=== PATIENT | female | born 1975 | race Caucasian/White ===

== ENCOUNTER → 2019-03-24 13:19 | Day surgery (SDC) | payer OTHER ==
[~2019-03-24 13:19] MED LIST: Acetaminophen TAB* 325 MG PO PRN; Buffered Lidocaine 1% SYRIN* 1 ML/SYRINGE INTRADERM ONE; Bupivacaine 0.5% W/EPI SDV* 10 ML VIAL INJ ONE; Dexamethasone IV* 4 MG/ML 1 ML (4 MG) IV SLOW PU ONE; Dexamethasone IV* 4 MG/ML 1 ML (4 MG) ONE; DiMENhydriNATE IV* 50 MG/ML VIAL IV PUSH PRN; DiMENhydriNATE IV* 50 MG/ML VIAL ONE; Famotidine IV* 10 MG/ML 2 ML (20 mg) IV ONE; Famotidine IV* 10 MG/ML 2 ML (20 mg) ONE; HYDROmorphone INJ1* 1 MG/ML SYRINGE IV PRN; Ketorolac INJ* 30 MG/ML 1 ML VIAL ONE; Lactated Ringers 1000 ML Bag* 1,000 ML IV SCH; Levalbuterol 0.63MG/3ML NEB* UNIT OF USE INH ONE; Lidocaine 1% MPF ** 5 ML VIAL ONE; Lidocaine 2% PF * 5 ML VIAL ONE; Midazolam* 1 MG/ML 5 ML VIAL (5 MG) ONE; Naloxone* 0.4 MG/ML 1 ML VIAL IV PRN; Ondansetron INJ* 2 MG/ML VIAL ONE; Phenylephrine 40 MCG/ML SYRINGE ONE; Propofol* 10 MG/ML 20 ML BTL ONE; ROPIVACAINE 5 MG/ML 30 ML BTL (0.5%) ONE; ceFAZolin 2 GM in NS PREMIX(*) 2 GM/100 ML BAG IVPB ONE; fentaNYL* 50 MCG/ML 2 ML VIAL (100 MCG VIAL) ONE
[2019-03-24 20:21] VITALS: BP 126/77
--- NOTE | 2019-03-25 18:11 | OP ---
OPERATIVE REPORT: DATE OF OPERATION: 03/24/19 DATE OF : 71 SURGEON: Cornell Mckay MD POLITICAL ORGANIZER: SIMON Alvarenga A physician portfolio assistant was required for the length of the procedure for assistance with patient positi oning, instrumentation, retraction, and closure. ANESTHESIOLOGIST: Dr. Carey Faust. ANESTHESIA: General anesthesia, regional interscalene block anesthesia, local anesthesia with Marcai ne 0.5% with epinephrine, 10 cc about the biceps open incision site. PRE-OP DIAGNOSES: 1. Right shoulder subacromial impingement and bursitis. 2. Right shoulder rotator cuff tendinitis. 3. Right shoulder acromioclavicular joint osteoarthritis. 4. Possible right shoulder superior labral tear. POST-OP DIAGNOSES: 1. Right shoulder subacromial impingement and bursitis. 2. Right shoulder rotator cuff tendinitis. 3. Right shoulder rotator cuff tendon tears, low-grade partial-thickness, supraspinatus, subscapular is. 4. Right shoulder acromioclavicular joint osteoarthritis. 5. Right shoulder superior labral tear. OPERATIVE PROCEDURE: 1. Right shoulder arthroscopic rotator cuff tendon repair with biologic Regeneten patch. 2. Right shoulder arthroscopic subacromial decompression. 3. Right shoulder arthroscopic distal clavicle resection. 4. Right shoulder open subpectoral biceps tenodesis. ANTIBIOTICS: Ancef 2 g IV. IV FLUIDS: 1100 cc crystalloid. [id number] TIME: 67 minutes. ARTHROSCOPIC FLUID UTILIZED: Not recorded. SPECIMENS: None. IMPLANTS: [employer] Regeneten biologic patch, size medium. Arthrex proximal biceps unicortic al button x1. COMPLICATIONS: None. ESTIMATED BLOOD LOSS: Minimal. INDICATIONS FOR PROCEDURE: The patient has had right shoulder pain since August of 2018, day and n ighttime, insufficiently responsive to a full spectrum of nonoperative treatment. The patient opted for surgery. Discussed risks and potential complications of surgery. The patient opted move forward with surgery. DESCRIPTION OF PROCEDURE: In preoperative holding, the patient signed a written consent. Operative extremity was marked in preoperative holding. The patient underwent an interscalene regional nerve b lock in preoperative holding. The patient was taken to the operating room and placed supine on the o perating room table. Sedated and intubated. The patient was converted into the lateral decubitus position with the right side up. Axillary roll. Beanbag hardened. All bony prominences padded. Longitudinal traction right shoulder with 10 pound s in the appropriate amount of abduction and forward flexion. Right shoulder was prepped and draped. Formal surgical time-out performed. Spinal needle entered into the glenohumeral joint from posterior and 30 cc of fluid placed into the s houlder joint. Next placed a posterior glenohumeral joint portal using standard technique. Diagnost ic arthroscopy commenced. I made an anterior glenohumeral joint portal under direct visualization, dillan hills helped with the diagnostic arthroscopy. articular cartilage defects. No loose body. There was a low-grade partial- thickness tear on the undersurface of the supraspinatus just at the anterior 25% of the tendon adjacent to the bicipit al groove. There was also some low-grade partial- thickness tearing in the undersurface of the subsc apularis superior end, although that tendon was fully out to length. I probed the superior labrum an d there was a clear unstable superior labral tear. Entered scissors from anterior and cut the biceps tendon near its origin, long head. I next smoothed out the undersurface of the supraspinatus as well as removing some rotator cuff interval tissue and smoothing out the superior edge of the subscapularis tendon. Removed fluid and instruments from the glenohumeral joint and moved to subacromial. Established anterior and posterior subacromial portals. Next established lateral and posterolateral portals under direct visualization. I debrided subacromial bursal inflamed tissue with arthroscopic shaver. Flattened out the undersurface of the anterior aspect of the acromion with an arthroscopic b urr. No bursal side tearing noted in the rotator cuff tendon. Asked for Regeneten biologic patch. I inserted it through a lateral portal. Through a superolateral portal, I applied PLLA jodie into it. I placed it over the supraspinatus tendon. It was well fixed with movement of the humerus. Moved to the AC joint. Debrided with electrocautery soft tissue about that joint and then debrided 8 mm of the distal end of the clavicle with an arthroscopic magen. Removed fluid and instruments from subacromial space. Closed skin incisions with [id number] and 12 stitches using nylon 3-0 suture. Softened the beanbag and converted the patient to a nearly supine position. Made open incision and d issected down to the bicipital groove. Drilled unicortically. Placed 3 stitches in the biceps tendon and loaded the button. Placed and flipped the button and tied a stitch. Used a free needle to plac e an additional stitch. Removed excess biceps tendon and suture. Irrigation. Closure of the subcuta neous tissue with buried simple stitches using Vicryl 3-0 suture, closure of the skin with a Monocryl 3-0 suture running stitch in a subcuticular layer. Mastisol, Steri- Strips, 4x4, Tegaderm. Closure of the arthroscopy incisions with Xeroform, 4x4s, ABDs, and foam tape. Sling was applied. Th e patient was awakened, extubated, and transferred to the PACU. DISPOSITION: Wound care instructions provided. Physical therapy to start immediately. Percocet as needed for pain control, Keflex for i nfection prophylaxis. The patient requested some Zofran if she becomes nauseous. The patient will f ollow up in 10 to 14 days. Will start physical therapy immediately. Will remain in sling for 2 to 3 weeks. [id number]/[facility] #: [id number]
== END | disposition home or self-care (01) ==
LOC: OR 13:19
PROVIDERS: ATTEND Orthopaedic Surgery
DX: S46.011A Strain of muscle(s) and tendon(s) of the rotator cuff of right shoulder, initial encounter (principal); S43.491A Other sprain of right shoulder joint, initial encounter; X50.3XXA Overexertion from repetitive movements, initial encounter; Y93.89 Activity, other specified; Y92.89 Other specified places as the place of occurrence of the external cause; Y99.0 Civilian activity done for income or pay; M75.41 Impingement syndrome of right shoulder; M75.51 Bursitis of right shoulder; M19.011 Primary osteoarthritis, right shoulder; M75.21 Bicipital tendinitis, right shoulder; G89.18 Other acute postprocedural pain; Z72.0 Tobacco use; D56.9 Thalassemia, unspecified; F43.10 Post-traumatic stress disorder, unspecified
CPT/HCPCS: 81025; C1713; J0690; J1100; J1240; J1885; J2250; J2405; J2704; J2795; J3010